=== PATIENT | male | born 1985 | race Two or more races ===

== ENCOUNTER 2017-10-20 10:58 | Outpatient (CLI) | payer OTHER ==
[~2017-10-20 10:58] MED LIST: CYCL-1 PO; DIAZ5TAB PO; TRAM50TA2 PO
== END 2017-10-20 23:59 | disposition home or self-care (01) ==
LOC: LAB 10:58
PROVIDERS: ATTEND Family Medicine
DX: R53.83 Other fatigue (principal)
CPT/HCPCS: 36415; 84402; 84403

== ENCOUNTER 2018-01-12 16:51 | Outpatient (CLI) | payer OTHER | END 2018-01-12 23:59 | disposition home or self-care (01) | LOC: RAD 16:51 | PROVIDERS: ATTEND Family Medicine | DX: M79.671 Pain in right foot (principal) | CPT/HCPCS: 73630 ==

== ENCOUNTER 2018-02-17 21:14 | Emergency (ER) | payer OTHER ==
[~2018-02-17] VITALS: Ht 180.3 cm; Wt 108.2 kg
[2018-02-17] MEDS ORDERED: normal saline 1000ML IV soln IV ONE (21:50)
[2018-02-17] MEDS ORDERED: ondansetron/PF 4mg/2ml inj IV ONE (21:50)
[2018-02-17] MEDS ORDERED: ketorolac trometh. 30mg/ml inj. IV ONE (21:50)
[2018-02-17 22:06] LABS: BASOPHILS # (AUTO) 0.1 X10'3 (0-0.2); BASOPHILS % (AUTO) 0.5 % (0-1); EOSINOPHILS % (AUTO) 0.3 % (0-6); HEMOGLOBIN 16.2 g/dl (14.0-17.9); LYMPHOCYTES # (AUTO) 1.4 X10'3 (1.1-4.8); LYMPHOCYTES % (AUTO) 11.2 % (21-51); MEAN CORPUSCULAR HEMOGLOBIN 29.5 PG (27.0-31.0); MEAN CORPUSCULAR HGB CONC 33.8 % (33.0-36.5); MEAN CORPUSCULAR VOLUME 87.5 FL (78-98); MEAN PLATELET VOLUME 8.9 FL (7.4-10.4); MONOCYTES # (AUTO) 0.9 X10'3 (0-0.9); MONOCYTES % (AUTO) 7.4 % (2-12); NEUTROPHILS # (AUTO) 9.8 X10'3 (1.8-7.7); NEUTROPHILS % (AUTO) 80.6 % (42-75); PLATELET COUNT 228 X10'3 (140-440); RED BLOOD COUNT 5.49 X10'6 (4.70-6.10); RED CELL DISTRIBUTION WIDTH 12.1 % (11.5-14.5); WHITE BLOOD COUNT 12.2 X10'3 (4.5-11.0)
[2018-02-17 22:16] LABS: ALANINE AMINOTRANSFERASE 46 U/L (12-78); ALBUMIN 4.3 G/DL (3.4-5.0); ALBUMIN/GLOBULIN RATIO 1.2 (1.1-1.5); ALKALINE PHOSPHATASE 67 IU/L (46-116); ANION GAP 9 (8-16); ASPARTATE AMINO TRANSFERASE 21 U/L (10-37); BILIRUBIN,TOTAL 0.6 MG/DL (0.1-1.0); BLOOD UREA NITROGEN 12 MG/DL (7-18); BUN/CREATININE RATIO 10.8 (5.4-32.0); CALCIUM 9.6 MG/DL (8.5-10.1); CHLORIDE 101 MMOL/L (99-107); CREATININE 1.11 MG/DL (0.60-1.10); GLUCOSE 91 MG/DL (70-104); MAGNESIUM 1.9 MG/DL (1.5-2.4); POTASSIUM 3.7 MMOL/L (3.5-5.1); SODIUM 139 MMOL/L (135-145); TOTAL CARBON DIOXIDE 29.2 MMOL/L (24-32); TOTAL PROTEIN 7.9 G/DL (6.4-8.2); eGFR 78 ML/MIN
[2018-02-17 22:29] LABS: PARTIAL THROMBOPLASTIN TIME 29 SECONDS (22-32)
[2018-02-17 22:31] LABS: PLATELET ESTIMATE NORMAL; TOTAL CELLS COUNTED 100
[2018-02-17] MEDS ORDERED: normal saline 1000ML IV soln IVB ONE (22:45)
[2018-02-17 23:05] LABS: CLARITY,URINE CLEAR (Clear); COLOR,URINE YELLOW (Yellow); GLUCOSE, URINE NEGATIVE (Neg); KETONES,URINE NEGATIVE (Neg); LEUKOCYTE ESTERASE ,URINE NEGATIVE (Neg); NITRITES, URINE NEGATIVE (Neg); OCCULT BLOOD,URINE NEGATIVE (Neg); PH,URINE 7.5 (4.8-8.0); PROTEIN,URINE NEGATIVE (Neg); UROBILINOGEN,URINE 0.2 E.U/dL (0.2-1.0)
[2018-02-17 23:11] LABS: UA COLLECTION TYPE CLN CATCH MIDSTREAM
[2018-02-18 00:03] VITALS: BP 140/74
== END 2018-02-18 00:04 | disposition home or self-care (01) ==
LOC: ER 21:14
DX: R50.9 Fever, unspecified (principal); G89.29 Other chronic pain; R53.1 Weakness; R06.02 Shortness of breath
CPT/HCPCS: 36415; 71045; 80053; 81003; 83605; 83735; 84145; 85025; 85610; 85730; 87040; 93005; 96374; 96375; 99285; J1885; J2405

== ENCOUNTER 2018-05-13 19:37 | Emergency (ER) | payer OTHER ==
[~2018-05-13] VITALS: Ht 180.3 cm; Wt 118.0 kg
[2018-05-13 21:23] VITALS: BP 127/79
== END 2018-05-13 22:07 | disposition home or self-care (01) ==
LOC: ER 19:38
DX: S80.02XA Contusion of left knee, initial encounter (principal); W11.XXXA Fall on and from ladder, initial encounter; Y93.89 Activity, other specified; Y92.89 Other specified places as the place of occurrence of the external cause; Y99.8 Other external cause status
CPT/HCPCS: 73564; 99284

== ENCOUNTER 2018-05-23 10:03 | Outpatient (CLI) | payer OTHER | END 2018-05-23 23:59 | disposition home or self-care (01) | LOC: RAD 10:03 | PROVIDERS: ATTEND Family Medicine | DX: N43.2 Other hydrocele (principal); N50.89 Other specified disorders of the male genital organs | CPT/HCPCS: 76870 ==

== ENCOUNTER 2018-05-25 13:24 | Outpatient (CLI) | payer OTHER ==
[2018-05-25 13:44] LABS: CLARITY,URINE CLEAR (Clear); COLOR,URINE YELLOW (Yellow); GLUCOSE, URINE NEGATIVE (Neg); KETONES,URINE NEGATIVE (Neg); LEUKOCYTE ESTERASE ,URINE NEGATIVE (Neg); NITRITES, URINE NEGATIVE (Neg); OCCULT BLOOD,URINE NEGATIVE (Neg); PROTEIN,URINE NEGATIVE (Neg); UROBILINOGEN,URINE 0.2 E.U/dL (0.2-1.0)
[2018-05-25 13:45] LABS: UA COLLECTION TYPE CLN CATCH MIDSTREAM
== END 2018-05-25 23:59 | disposition home or self-care (01) ==
LOC: LAB 13:24
PROVIDERS: ATTEND Family Medicine
DX: N50.9 Disorder of male genital organs, unspecified (principal); Z79.899 Other long term (current) drug therapy
CPT/HCPCS: 36415; 81003; 87491

== ENCOUNTER 2018-06-14 11:56 | Emergency (ER) | payer OTHER ==
[~2018-06-14] VITALS: Ht 180.3 cm; Wt 118.2 kg
[2018-06-14 12:29] LABS: CLARITY,URINE CLEAR (Clear); COLOR,URINE STRAW (Yellow); GLUCOSE, URINE NEGATIVE (Neg); KETONES,URINE NEGATIVE (Neg); LEUKOCYTE ESTERASE ,URINE NEGATIVE (Neg); NITRITES, URINE NEGATIVE (Neg); OCCULT BLOOD,URINE NEGATIVE (Neg); PH,URINE 7.5 (4.8-8.0); PROTEIN,URINE NEGATIVE (Neg); UA COLLECTION TYPE CLN CATCH MIDSTREAM; UROBILINOGEN,URINE 0.2 E.U/dL (0.2-1.0)
[2018-06-14] MEDS ORDERED: CYCL-1 PO (12:36)
[2018-06-14] MEDS ORDERED: CIPR-230 PO (12:36)
[2018-06-14 12:45] VITALS: BP 139/98
== END 2018-06-14 12:47 | disposition home or self-care (01) ==
LOC: ER 11:56 → EEVIPCON 11:56 → ER 12:47
DX: N45.1 Epididymitis (principal); M54.9 Dorsalgia, unspecified; G89.29 Other chronic pain; Z79.2 Long term (current) use of antibiotics; Z79.899 Other long term (current) drug therapy
CPT/HCPCS: 81003; 99283

== ENCOUNTER 2019-12-05 17:58 | Emergency (ER) | payer OTHER ==
[~2019-12-05] VITALS: Ht 180.3 cm; Wt 113.6 kg
[2019-12-05 18:19] VITALS: BP 128/84
[2019-12-05] MEDS ORDERED: ketorolac tromethamine 15mg/ml inj. IM ONE (18:45)
== END 2019-12-05 20:00 | disposition home or self-care (01) ==
LOC: ER 17:58
DX: S80.02XA Contusion of left knee, initial encounter (principal); M25.562 Pain in left knee; G89.29 Other chronic pain; Z79.899 Other long term (current) drug therapy; W18.39XA Other fall on same level, initial encounter; Y93.89 Activity, other specified; Y92.89 Other specified places as the place of occurrence of the external cause; Y99.8 Other external cause status
CPT/HCPCS: 73564; 96372; 99283; J1885

== ENCOUNTER 2020-02-20 10:57 | Outpatient (CLI) | payer BC, OTHER ==
[2020-02-20 11:30] LABS: BASOPHILS # (AUTO) 0.1 X10'3 (0-0.2); BASOPHILS % (AUTO) 0.8 % (0-1); EOSINOPHILS # (AUTO) 0.2 X10'3 (0-0.9); EOSINOPHILS % (AUTO) 2.4 % (0-6); HEMATOCRIT 45.7 % (42.0-52.0); LYMPHOCYTES # (AUTO) 2.2 X10'3 (1.1-4.8); LYMPHOCYTES % (AUTO) 32.8 % (21-51); MEAN CORPUSCULAR HEMOGLOBIN 30.3 PG (27.0-31.0); MEAN CORPUSCULAR VOLUME 86.8 FL (78-98); MEAN PLATELET VOLUME 9.1 FL (7.4-10.4); MONOCYTES # (AUTO) 0.6 X10'3 (0-0.9); MONOCYTES % (AUTO) 8.7 % (2-12); NEUTROPHILS # (AUTO) 3.7 X10'3 (1.8-7.7); NEUTROPHILS % (AUTO) 55.3 % (42-75); PLATELET COUNT 236 X10'3 (140-440); RED BLOOD COUNT 5.27 X10'6 (4.70-6.10); RED CELL DISTRIBUTION WIDTH 12.9 % (11.5-14.5); WHITE BLOOD COUNT 6.7 X10'3 (4.5-11.0)
[2020-02-20 11:34] LABS: CLARITY,URINE CLEAR (Clear); COLOR,URINE YELLOW (Yellow); GLUCOSE, URINE NEGATIVE (Neg); KETONES,URINE NEGATIVE (Neg); LEUKOCYTE ESTERASE ,URINE NEGATIVE (Neg); NITRITES, URINE NEGATIVE (Neg); OCCULT BLOOD,URINE NEGATIVE (Neg); PROTEIN,URINE NEGATIVE (Neg); UROBILINOGEN,URINE 0.2 E.U/dL (0.2-1.0)
[2020-02-20 11:38] LABS: UA COLLECTION TYPE CLN CATCH MIDSTREAM
[2020-02-20 11:56] LABS: ALANINE AMINOTRANSFERASE 28 U/L (12-78); ALBUMIN 4.4 G/DL (3.4-5.0); ALBUMIN/GLOBULIN RATIO 1.3 (1.1-1.5); ALKALINE PHOSPHATASE 47 IU/L (46-116); ANION GAP 6 (8-16); ASPARTATE AMINO TRANSFERASE 12 U/L (10-37); BILIRUBIN,TOTAL 0.6 MG/DL (0.1-1.0); BLOOD UREA NITROGEN 18 MG/DL (7-18); BUN/CREATININE RATIO 17.3 (5.4-32.0); CALCIUM 9.3 MG/DL (8.5-10.1); CHLORIDE 106 MMOL/L (99-107); CHOL/HDL RATIO 3.9 (0.00-4.99); CHOLESTEROL 191 MG/DL (0-200); CREATININE 1.04 MG/DL (0.60-1.10); GLUCOSE 99 MG/DL (70-104); HDL CHOLESTEROL 49 MG/DL (35-60); LDL CHOLESTEROL 122 MG/DL (50-100); SODIUM 139 MMOL/L (135-145); TOTAL CARBON DIOXIDE 26.8 MMOL/L (24-32); TOTAL PROTEIN 7.9 G/DL (6.4-8.2); TRIGLYCERIDES 168 MG/DL (20-135); eGFR 83 ML/MIN
== END 2020-02-20 23:59 | disposition home or self-care (01) ==
LOC: LAB 10:57 → EEVIPCON 10:57 → LAB 23:59
PROVIDERS: ATTEND Family Medicine
DX: Z00.00 Encounter for general adult medical examination without abnormal findings (principal)
CPT/HCPCS: 36415; 80053; 80061; 81003; 84439; 84443; 85025

== ENCOUNTER 2020-03-03 21:35 | Emergency (ER) | payer BC ==
[~2020-03-03] VITALS: Ht 180.3 cm; Wt 112.0 kg
[~2020-03-03 21:35] MED LIST changes: +LIDOcaine 1% W/epiNEPHrine 1:200,000 10ml vial ONE
[2020-03-03 21:50] VITALS: BP 127/83
[2020-03-03] MEDS ORDERED: DOXYCYCLINE 100MG CAPSULE PO STA (22:58)
[2020-03-03] MEDS ORDERED: ibuprofen 200mg tablet PO ONE (23:00)
[2020-03-03] MEDS ORDERED: DOXY100C2 PO (23:08)
== END 2020-03-03 23:31 | disposition home or self-care (01) ==
LOC: ER 21:35 → EEVIPCON 21:35 → ER 23:31
DX: L60.0 Ingrowing nail (principal); G89.29 Other chronic pain; Z79.899 Other long term (current) drug therapy
CPT/HCPCS: 10060; 11730; 99283; 99284

== ENCOUNTER 2020-03-12 15:16 | Outpatient (CLI) | payer BC ==
[~2020-03-12 15:16] MED LIST changes: -LIDOcaine 1% W/epiNEPHrine 1:200,000 10ml vial ONE
== END 2020-03-12 23:59 | disposition home or self-care (01) ==
LOC: RAD 15:16
PROVIDERS: ATTEND Family Medicine
DX: M47.812 Spondylosis without myelopathy or radiculopathy, cervical region (principal); M25.78 Osteophyte, vertebrae
CPT/HCPCS: 72141

== ENCOUNTER 2020-05-26 09:55 | Outpatient (CLI) | payer BC | END 2020-05-26 23:59 | disposition home or self-care (01) | LOC: LAB 09:55 | PROVIDERS: ATTEND Family Medicine | DX: E29.1 Testicular hypofunction (principal) | CPT/HCPCS: 36415; 84402; 84403 ==

== ENCOUNTER 2020-07-09 12:31 | Emergency (ER) | payer BC ==
[~2020-07-09] VITALS: Ht 180.3 cm; Wt 111.4 kg
[2020-07-09] MEDS ORDERED: ondansetron/PF 4mg/2ml inj IM ONE (14:05)
[2020-07-09] MEDS ORDERED: methylPREDNISolone sod succ 125mg/2ml vial IV ONE (14:20)
[2020-07-09] MEDS ORDERED: normal saline 1000ML IV soln IVB ONE (14:20)
[2020-07-09 14:34] VITALS: BP 113/61
[2020-07-09] MEDS ORDERED: ALBU6.7H9 INH (15:19)
== END 2020-07-09 15:30 | disposition home or self-care (01) ==
LOC: EEVIPCON 12:33 → ER 12:33
DX: T59.811A Toxic effect of smoke, accidental (unintentional), initial encounter (principal); R06.02 Shortness of breath; G89.29 Other chronic pain; Z79.899 Other long term (current) drug therapy; Y92.89 Other specified places as the place of occurrence of the external cause
CPT/HCPCS: 96361; 96372; 96374; 99284; J2405; J2930; J7030

== ENCOUNTER 2020-10-08 09:13 | Outpatient (CLI) | payer BC ==
[~2020-10-08 09:13] MED LIST changes: +ALBU6.7H9 INH
[2020-10-08 10:13] LABS: HEMATOCRIT 45.1 % (42.0-52.0); HEMOGLOBIN 15.2 g/dl (14.0-17.9); MEAN CORPUSCULAR HEMOGLOBIN 30.2 PG (27.0-31.0); MEAN CORPUSCULAR HGB CONC 33.7 g/dL (33.0-36.5); MEAN CORPUSCULAR VOLUME 89.7 FL (78-98); PLATELET COUNT 246 X10'3 (140-440); RED BLOOD COUNT 5.02 X10'6 (4.70-6.10); WHITE BLOOD COUNT 6.3 X10'3 (4.5-11.0)
[2020-10-09 07:33] LABS: ESTRADIOL 27.7 pg/mL (7.6-42.6); LUTEINIZING HORMONE 6.9 mIU/mL (1.7-8.6); PROLACTIN 7.8 ng/mL (4.0-15.2)
== END 2020-10-08 23:59 | disposition home or self-care (01) ==
LOC: LAB 09:13
PROVIDERS: ATTEND Urology
DX: E29.1 Testicular hypofunction (principal)
CPT/HCPCS: 36415; 82670; 83002; 84146; 84410; 85027

== ENCOUNTER 2020-11-07 09:55 | Emergency (ER) | payer OTHER, BC ==
[~2020-11-07] VITALS: Ht 180.3 cm; Wt 107.0 kg
[2020-11-07 09:59] VITALS: BP 127/87
[2020-11-07] MEDS ORDERED: ketorolac tromethamine 15mg/ml inj. IM ONE (10:20)
[2020-11-07] MEDS ORDERED: IBUP-1984 PO (11:06)
[2020-11-07] MEDS ORDERED: CYCL-1 PO (11:06)
== END 2020-11-07 11:44 | disposition home or self-care (01) ==
LOC: EEVIPCON 09:56 → ER 09:56
DX: R07.89 Other chest pain (principal); G89.29 Other chronic pain; M54.9 Dorsalgia, unspecified; V87.7XXA Person injured in collision between other specified motor vehicles (traffic), initial encounter; Y93.89 Activity, other specified; Y92.89 Other specified places as the place of occurrence of the external cause; Y99.8 Other external cause status
CPT/HCPCS: 71045; 96372; 99283; J1885

== ENCOUNTER 2020-12-13 09:07 | Outpatient (CLI) | payer BC | END 2020-12-13 23:59 | disposition home or self-care (01) | LOC: RAD 09:07 | PROVIDERS: ATTEND Family Medicine | DX: M51.46 Schmorl's nodes, lumbar region (principal); M25.78 Osteophyte, vertebrae | CPT/HCPCS: 72148 ==

== ENCOUNTER 2021-03-27 09:54 | Outpatient (CLI) | payer BC ==
[2021-03-27 10:32] LABS: BASOPHILS % (AUTO) 0.8 % (0-1); EOSINOPHILS # (AUTO) 0.1 X10'3 (0-0.9); EOSINOPHILS % (AUTO) 2.4 % (0-6); HEMATOCRIT 45.4 % (42.0-52.0); HEMOGLOBIN 15.9 g/dl (14.0-17.9); LYMPHOCYTES # (AUTO) 2.2 X10'3 (1.1-4.8); LYMPHOCYTES % (AUTO) 36.2 % (21-51); MEAN CORPUSCULAR HEMOGLOBIN 30.4 PG (27.0-31.0); MEAN CORPUSCULAR VOLUME 86.7 FL (78-98); MEAN PLATELET VOLUME 8.5 FL (7.4-10.4); MONOCYTES # (AUTO) 0.5 X10'3 (0-0.9); MONOCYTES % (AUTO) 8.9 % (2-12); NEUTROPHILS # (AUTO) 3.1 X10'3 (1.8-7.7); NEUTROPHILS % (AUTO) 51.7 % (42-75); PLATELET COUNT 254 X10'3 (140-440); RED BLOOD COUNT 5.23 X10'6 (4.70-6.10); RED CELL DISTRIBUTION WIDTH 12.7 % (11.5-14.5)
[2021-03-27 10:41] LABS: ALBUMIN 4.4 G/DL (3.4-5.0); ANION GAP 11 (8-16); BLOOD UREA NITROGEN 16 MG/DL (7-18); BUN/CREATININE RATIO 15.1 (5.4-32.0); CALCIUM 9.4 MG/DL (8.5-10.1); CHLORIDE 107 MMOL/L (99-107); CREATININE 1.06 MG/DL (0.60-1.10); GLUCOSE 105 MG/DL (70-104); POTASSIUM 3.8 MMOL/L (3.5-5.1); SODIUM 144 MMOL/L (135-145); TOTAL CARBON DIOXIDE 25.8 MMOL/L (24-32); eGFR 80 ML/MIN
[2021-03-27 10:45] LABS: PARTIAL THROMBOPLASTIN TIME 28 SECONDS (22-32)
== END 2021-03-27 23:59 | disposition home or self-care (01) ==
LOC: LAB 09:54
PROVIDERS: ATTEND Neurological Surgery
DX: Z01.812 Encounter for preprocedural laboratory examination (principal); M48.062 Spinal stenosis, lumbar region with neurogenic claudication; Z01.810 Encounter for preprocedural cardiovascular examination; Z01.811 Encounter for preprocedural respiratory examination
CPT/HCPCS: 36415; 71046; 80048; 85025; 85610; 85730; 93005

== ENCOUNTER 2021-04-07 09:30 | Outpatient (CLI) | payer BC | END 2021-04-07 23:59 | disposition home or self-care (01) | LOC: RAD 09:30 | PROVIDERS: ATTEND Neurological Surgery | DX: Z01.812 Encounter for preprocedural laboratory examination (principal); Z20.822 Contact with and (suspected) exposure to COVID-19 | CPT/HCPCS: 87635; C9803 ==

== ENCOUNTER 2021-04-13 14:37 | Emergency (ER) | payer BC ==
[~2021-04-13] VITALS: Ht 177.8 cm; Wt 115.9 kg
[2021-04-13 15:02] VITALS: BP 124/80
[2021-04-13] MEDS ORDERED: HYDR-3965 PO (15:28)
[2021-04-13] MEDS ORDERED: ONDA4TAB6 PO (15:28)
[2021-04-13] MEDS ORDERED: HYDROcodone/acetaminophen 10/325mg tab PO ONE (15:30)
== END 2021-04-13 15:52 | disposition home or self-care (01) ==
LOC: ER 14:38
DX: G89.29 Other chronic pain (principal); M54.9 Dorsalgia, unspecified; G89.18 Other acute postprocedural pain; Z79.899 Other long term (current) drug therapy
CPT/HCPCS: 99283

== ENCOUNTER 2021-05-06 19:54 | Emergency (ER) | payer BC ==
[~2021-05-06] VITALS: Ht 177.8 cm; Wt 113.0 kg
[~2021-05-06 19:54] MED LIST changes: +HYDR-3965 PO; +ONDA4TAB6 PO
[2021-05-06 20:09] VITALS: BP 131/67
[2021-05-06] MEDS ORDERED: LIDOcaine 1% 30ml preserv. free vial IJ ONE (20:15)
[2021-05-06] MEDS ORDERED: LIDOcaine 1% W/epiNEPHrine 1:100,000 20ml vial IJ ONE (20:15)
[2021-05-06] MEDS ORDERED: LIDOcaine 1% W/epiNEPHrine 1:200,000 10ml vial IJ ONE (20:15)
== END 2021-05-06 21:04 | disposition home or self-care (01) ==
LOC: ER 19:55
DX: S61.102A Unspecified open wound of left thumb with damage to nail, initial encounter (principal); G89.29 Other chronic pain; Z79.899 Other long term (current) drug therapy; X58.XXXA Exposure to other specified factors, initial encounter; Y93.89 Activity, other specified; Y92.89 Other specified places as the place of occurrence of the external cause; Y99.8 Other external cause status
CPT/HCPCS: 11730; 99284

== ENCOUNTER 2021-08-04 22:16 | Emergency (ER) | payer BC, OTHER ==
[~2021-08-04] VITALS: Ht 177.8 cm; Wt 113.6 kg
[~2021-08-04 22:16] MED LIST changes: -HYDR-3965 PO
[2021-08-04 23:27] VITALS: BP 106/66
== END 2021-08-04 23:29 | disposition home or self-care (01) ==
LOC: ER 22:17
DX: S00.211A Abrasion of right eyelid and periocular area, initial encounter (principal); Y04.0XXA Assault by unarmed brawl or fight, initial encounter; Y93.89 Activity, other specified; Y92.89 Other specified places as the place of occurrence of the external cause; Y99.8 Other external cause status
CPT/HCPCS: 99281

== ENCOUNTER 2022-03-24 08:55 | Outpatient (CLI) | payer OTHER ==
[~2022-03-24 08:55] MED LIST changes: +ALBU6.7H14 INH; -ALBU6.7H9 INH
[2022-03-24 09:46] LABS: BASOPHILS % (AUTO) 0.6 % (0-1); EOSINOPHILS # (AUTO) 0.2 X10'3 (0-0.9); EOSINOPHILS % (AUTO) 3.2 % (0-6); HEMATOCRIT 47.5 % (42.0-52.0); HEMOGLOBIN 16.2 g/dl (14.0-17.9); LYMPHOCYTES # (AUTO) 2.2 X10'3 (1.1-4.8); LYMPHOCYTES % (AUTO) 36.2 % (21-51); MEAN CORPUSCULAR HEMOGLOBIN 29.7 PG (27.0-31.0); MEAN CORPUSCULAR HGB CONC 34.1 g/dL (33.0-36.5); MEAN CORPUSCULAR VOLUME 87.1 FL (78-98); MEAN PLATELET VOLUME 8.6 FL (7.4-10.4); MONOCYTES # (AUTO) 0.6 X10'3 (0-0.9); MONOCYTES % (AUTO) 9.1 % (2-12); NEUTROPHILS # (AUTO) 3.1 X10'3 (1.8-7.7); NEUTROPHILS % (AUTO) 50.9 % (42-75); PLATELET COUNT 235 X10'3 (140-440); RED BLOOD COUNT 5.45 X10'6 (4.70-6.10); RED CELL DISTRIBUTION WIDTH 12.7 % (11.5-14.5); WHITE BLOOD COUNT 6.1 X10'3 (4.5-11.0)
[2022-03-24 10:21] LABS: ALANINE AMINOTRANSFERASE 33 U/L (12-78); ALBUMIN 4.1 G/DL (3.4-5.0); ALBUMIN/GLOBULIN RATIO 1.2 (1.1-1.5); ALKALINE PHOSPHATASE 60 IU/L (46-116); ANION GAP 6 (8-16); ASPARTATE AMINO TRANSFERASE 21 U/L (10-37); BILIRUBIN,TOTAL 0.6 MG/DL (0.1-1.0); BLOOD UREA NITROGEN 10 MG/DL (7-18); BUN/CREATININE RATIO 10.2 (5.4-32.0); CALCIUM 9.5 MG/DL (8.5-10.1); CHLORIDE 106 MMOL/L (99-107); CREATININE 0.98 MG/DL (0.60-1.10); GLUCOSE 114 MG/DL (70-104); POTASSIUM 4.1 MMOL/L (3.5-5.1); SODIUM 139 MMOL/L (135-145); TOTAL CARBON DIOXIDE 27.5 MMOL/L (24-32); TOTAL PROTEIN 7.5 G/DL (6.4-8.2); eGFR 88 ML/MIN
[2022-03-25 08:45] LABS: FSH, SERUM 0.5 mIU/mL (1.5-12.4); LUTEINIZING HORMONE <0.3 mIU/mL (1.7-8.6)
== END 2022-03-24 23:59 | disposition home or self-care (01) ==
LOC: LAB 08:55
PROVIDERS: ATTEND Family Medicine
DX: E29.1 Testicular hypofunction (principal); R07.9 Chest pain, unspecified
CPT/HCPCS: 36415; 80053; 83001; 83002; 84402; 84403; 84439; 84443; 85025

== ENCOUNTER 2022-04-28 09:02 | Outpatient (CLI) | payer BC | END 2022-04-28 23:59 | disposition home or self-care (01) | LOC: CARD DIAG 09:02 | PROVIDERS: ATTEND Internal Medicine Interventional Cardiology | DX: I08.8 Other rheumatic multiple valve diseases (principal); R07.2 Precordial pain; I47.9 Paroxysmal tachycardia, unspecified; R06.02 Shortness of breath | CPT/HCPCS: 93306 ==

== ENCOUNTER 2022-07-07 09:29 | Emergency (ER) | payer OTHER ==
[~2022-07-07] VITALS: Ht 180.3 cm; Wt 115.0 kg
[2022-07-07] MEDS ORDERED: LIDOcaine 5% patch TP STA (10:32)
[2022-07-07] MEDS ORDERED: ketorolac trometh inj. 60 MG/2 ML VIAL IM ONE (10:35)
[2022-07-07] MEDS ORDERED: CYCL-1 PO (11:06)
[2022-07-07 11:51] VITALS: BP 117/79
[2022-07-07] MEDS ORDERED: LIDO700A32 TOP (16:51)
== END 2022-07-07 11:55 | disposition home or self-care (01) ==
LOC: ER 09:29
DX: S39.012A Strain of muscle, fascia and tendon of lower back, initial encounter (principal); M62.830 Muscle spasm of back; G89.29 Other chronic pain; Z98.890 Other specified postprocedural states; Z79.899 Other long term (current) drug therapy; X50.1XXA Overexertion from prolonged static or awkward postures, initial encounter; Y93.89 Activity, other specified; Y92.89 Other specified places as the place of occurrence of the external cause; Y99.8 Other external cause status
CPT/HCPCS: 96372; 99284; J1885

== ENCOUNTER 2022-07-16 08:12 | Outpatient (CLI) | payer BC ==
[~2022-07-16 08:12] MED LIST changes: +LIDO700A32 TOP
[2022-07-16] MEDS ORDERED: aminophylline 250mg/10ml inj. IV PRN (09:20)
[2022-07-16] MEDS ORDERED: normal saline 500ml IV soln 500 ML IV ONE (09:20)
[2022-07-16] MEDS ORDERED: nitroGLYCERIN 0.4mg SUBLingual tab SL PRN (09:20)
[2022-07-16] MEDS ORDERED: regadenoson 0.4mg/5ml syringe IV ONE (09:20)
[2022-07-16 09:31] VITALS: BP 118/73
[2022-07-16 09:42] VITALS: BP 123/84
[2022-07-16 09:43] VITALS: BP 123/77
[2022-07-16 09:44] VITALS: BP_SYST 111; BP_SYST 119; BP_DIAS 67; BP_DIAS 70
[2022-07-16 09:45] VITALS: BP 111/68
[2022-07-16 09:46] VITALS: BP 116/64
== END 2022-07-16 23:59 | disposition home or self-care (01) ==
LOC: RAD 08:12
PROVIDERS: ATTEND Internal Medicine Interventional Cardiology
DX: R07.9 Chest pain, unspecified (principal)
CPT/HCPCS: 78452; 93017; A9500; J2785; J7040; J0280

== ENCOUNTER 2022-09-18 20:57 | Emergency (ER) | payer BC ==
[~2022-09-18] VITALS: Ht 180.3 cm; Wt 118.2 kg
[2022-09-18 21:10] VITALS: BP 119/85
== END 2022-09-18 22:24 | disposition home or self-care (01) ==
LOC: ER 20:58
DX: S56.493A Other injury of extensor muscle, fascia and tendon of right middle finger at forearm level, initial encounter (principal); X58.XXXA Exposure to other specified factors, initial encounter; Y93.89 Activity, other specified; Y92.89 Other specified places as the place of occurrence of the external cause; Y99.8 Other external cause status
CPT/HCPCS: 73130; 99283; A6258; A6449

== ENCOUNTER 2022-11-02 08:59 | Outpatient (CLI) | payer BC ==
[2022-11-02 10:07] LABS: ALANINE AMINOTRANSFERASE 26 U/L (12-78); ALBUMIN/GLOBULIN RATIO 1.3 (1.1-1.5); ALKALINE PHOSPHATASE 50 IU/L (46-116); ANION GAP 11 (8-16); ASPARTATE AMINO TRANSFERASE 17 U/L (10-37); BILIRUBIN,TOTAL 0.6 MG/DL (0.1-1.0); BLOOD UREA NITROGEN 10 MG/DL (7-18); BUN/CREATININE RATIO 8.9 (10.0-20.0); CHLORIDE 105 MMOL/L (99-107); CHOL/HDL RATIO 3.8 (0.00-4.99); CHOLESTEROL 169 MG/DL (0-200); CREATININE 1.12 MG/DL (0.60-1.10); GLUCOSE 103 MG/DL (70-104); HDL CHOLESTEROL 44 MG/DL (35-60); LDL CHOLESTEROL 96 MG/DL (50-100); POTASSIUM 4.1 MMOL/L (3.5-5.1); SODIUM 142 MMOL/L (135-145); TOTAL CARBON DIOXIDE 26.1 MMOL/L (24-32); TRIGLYCERIDES 119 MG/DL (20-135); eGFR 75 ML/MIN
== END 2022-11-02 23:59 | disposition home or self-care (01) ==
LOC: LAB 08:59
PROVIDERS: ATTEND Family Medicine
DX: E29.1 Testicular hypofunction (principal)
CPT/HCPCS: 36415; 80053; 80061; 84402; 84403

== ENCOUNTER 2023-04-15 15:15 | Outpatient (CLI) | payer BC | END 2023-04-15 23:59 | disposition home or self-care (01) | LOC: RAD 15:15 | PROVIDERS: ATTEND Family Medicine | DX: M50.122 Cervical disc disorder at C5-C6 level with radiculopathy (principal) | CPT/HCPCS: 72141 ==

== ENCOUNTER 2023-09-11 21:46 | Emergency (ER) | payer BC ==
[~2023-09-11] VITALS: Ht 180.3 cm; Wt 114.1 kg
[2023-09-11 21:50] VITALS: BP 131/86; PULSE 79; RESP 14; O2SAT 96
[2023-09-11] MEDS ORDERED: ketorolac trometh. 30mg/ml inj. IV ONE (22:25)
[2023-09-11 22:47] LABS: BASOPHILS % (AUTO) 0.4 % (0-1); EOSINOPHILS # (AUTO) 0.1 X10'3 (0-0.9); EOSINOPHILS % (AUTO) 0.9 % (0-6); HEMATOCRIT 38.6 % (42.0-52.0); HEMOGLOBIN 13.5 g/dl (14.0-17.9); LYMPHOCYTES # (AUTO) 1.2 X10'3 (1.1-4.8); LYMPHOCYTES % (AUTO) 16.1 % (21-51); MEAN CORPUSCULAR HEMOGLOBIN 30.6 PG (27.0-31.0); MEAN CORPUSCULAR VOLUME 87.4 FL (78-98); MEAN PLATELET VOLUME 8.2 FL (7.4-10.4); MONOCYTES # (AUTO) 0.8 X10'3 (0-0.9); MONOCYTES % (AUTO) 10.6 % (2-12); NEUTROPHILS # (AUTO) 5.6 X10'3 (1.8-7.7); PLATELET COUNT 249 X10'3 (140-440); RED BLOOD COUNT 4.42 X10'6 (4.70-6.10); RED CELL DISTRIBUTION WIDTH 13.1 % (11.5-14.5); WHITE BLOOD COUNT 7.8 X10'3 (4.5-11.0)
[2023-09-11] MEDS: ketorolac tromethamine 15mg/ml inj. IV ONE (22:51)
[2023-09-11] MEDS: normal saline 1000ML IV soln IVB ONE (22:53)
[2023-09-11 23:03] LABS: ALBUMIN 3.1 G/DL (3.4-5.0); ANION GAP 9 (8-16); BLOOD UREA NITROGEN 10 MG/DL (7-18); BUN/CREATININE RATIO 11.1 (10.0-20.0); CALCIUM 8.9 MG/DL (8.5-10.1); CHLORIDE 102 MMOL/L (99-107); GLUCOSE 103 MG/DL (70-104); POTASSIUM 3.8 MMOL/L (3.5-5.1); SODIUM 138 MMOL/L (135-145); TOTAL CARBON DIOXIDE 27.4 MMOL/L (24-32); eCRCL 122 ML/MIN; eGFR > 90 ML/MIN
[2023-09-11 23:52] LABS: MONOTEST NEGATIVE (Neg)
[2023-09-12 00:07] VITALS: TEMP 99.4
== END 2023-09-12 00:10 | disposition home or self-care (01) ==
LOC: ER 21:47
DX: B34.9 Viral infection, unspecified (principal); Z20.822 Contact with and (suspected) exposure to COVID-19; Z79.899 Other long term (current) drug therapy
CPT/HCPCS: 36415; 80048; 84145; 85025; 86308; 87811; 96361; 96374; 99283; J1885; J7030; 87502; 87503

== ENCOUNTER 2024-09-05 08:51 | Outpatient (CLI) | payer BC ==
[2024-09-05 09:18] LABS: BASOPHILS % (AUTO) 0.7 % (0-1); EOSINOPHILS # (AUTO) 0.2 X10'3 (0-0.9); EOSINOPHILS % (AUTO) 2.9 % (0-6); HEMATOCRIT 46.4 % (42.0-52.0); HEMOGLOBIN 16.1 g/dl (14.0-17.9); LYMPHOCYTES # (AUTO) 1.8 X10'3 (1.1-4.8); LYMPHOCYTES % (AUTO) 29.6 % (21-51); MEAN CORPUSCULAR HEMOGLOBIN 30.5 PG (27.0-31.0); MEAN CORPUSCULAR HGB CONC 34.8 g/dL (33.0-36.5); MEAN CORPUSCULAR VOLUME 87.7 FL (78-98); MEAN PLATELET VOLUME 8.8 FL (7.4-10.4); MONOCYTES # (AUTO) 0.5 X10'3 (0-0.9); MONOCYTES % (AUTO) 7.7 % (2-12); NEUTROPHILS # (AUTO) 3.7 X10'3 (1.8-7.7); NEUTROPHILS % (AUTO) 59.1 % (42-75); PLATELET COUNT 274 X10'3 (140-440); RED BLOOD COUNT 5.29 X10'6 (4.70-6.10); WHITE BLOOD COUNT 6.2 X10'3 (4.5-11.0)
[2024-09-05 09:35] LABS: ALANINE AMINOTRANSFERASE 30 U/L (12-78); ALBUMIN/GLOBULIN RATIO 1.2 (1.1-1.5); ALKALINE PHOSPHATASE 65 IU/L (46-116); ANION GAP 7 (8-16); ASPARTATE AMINO TRANSFERASE 13 U/L (10-37); BILIRUBIN,TOTAL 0.5 MG/DL (0.1-1.0); BLOOD UREA NITROGEN 14 MG/DL (7-18); BUN/CREATININE RATIO 13.3 (10.0-20.0); CALCIUM 9.3 MG/DL (8.5-10.1); CHLORIDE 105 MMOL/L (99-107); CHOL/HDL RATIO 4.1 (0.00-4.99); CHOLESTEROL 211 MG/DL (0-200); CREATININE 1.05 MG/DL (0.60-1.10); GLUCOSE 102 MG/DL (70-104); HDL CHOLESTEROL 52 MG/DL (35-60); LDL CHOLESTEROL 132 MG/DL (50-100); SODIUM 140 MMOL/L (135-145); TOTAL CARBON DIOXIDE 28.2 MMOL/L (24-32); TOTAL PROTEIN 7.3 G/DL (6.4-8.2); TRIGLYCERIDES 173 MG/DL (20-135); eGFR 80 ML/MIN
[2024-09-05 09:36] LABS: POTASSIUM 4.1 MMOL/L (3.5-5.1)
[2024-09-05 10:51] LABS: HEMOGLOBIN A1C 5.2 % (4.5-6.2)
[2024-09-06 13:28] LABS: TESTOSTERONE, SERUM 291 ng/dL (264-916)
== END 2024-09-05 23:59 | disposition home or self-care (01) ==
LOC: LAB 08:51
PROVIDERS: ATTEND Nurse Practitioner
DX: F32.9 Major depressive disorder, single episode, unspecified (principal); K21.9 Gastro-esophageal reflux disease without esophagitis; M79.601 Pain in right arm; E29.1 Testicular hypofunction; R73.9 Hyperglycemia, unspecified; E55.9 Vitamin D deficiency, unspecified; M79.602 Pain in left arm; R20.0 Anesthesia of skin
CPT/HCPCS: 36415; 80053; 80061; 82306; 83036; 84402; 84403; 85025